=== PATIENT | male | born 1965 | race Two or more races ===

== ENCOUNTER 2020-08-13 15:49 | Emergency (ER) | payer OTHER ==
[~2020-08-13] VITALS: Ht 167.6 cm; Wt 87.5 kg
[2020-08-13] MEDS ORDERED: ASPI81TA31 PO (16:12)
[2020-08-13] MEDS ORDERED: ATOR40TA PO (16:12)
[2020-08-13] MEDS ORDERED: LOSA25TA27 PO (16:12)
[2020-08-13] MEDS ORDERED: METO-356 PO (16:12)
[2020-08-13] MEDS ORDERED: TICA60TA PO (16:12)
[2020-08-13 16:18] LABS: *BILIRUBIN,URIN NEGATIVE (NEGATIVE); *BLOOD, URINE 3+ (NEGATIVE); *CLARITY,URINE TURBID (CLEAR); *COLOR,URINE YELLOW (YELLOW); *KETONES,URINE NEGATIVE (NEGATIVE); *UROBILINOGEN,URINE 0.2 E.U./dl (NORMAL); LEUKOCYTE ESTERASE ,URINE 3+ (NEGATIVE); NITRITE, URINE NEGATIVE (NEGATIVE); PH,URINE 8.5 (5.0-8.0); UGLUCOSE NEGATIVE (NEGATIVE)
--- NOTE | 2020-08-13 16:59 | NUR ---
Patient discharged to home in stable condition. Written and verbal after care instructions given. Patient verbalizes understanding of instructions. Stressed follow up or return to ER for worsening s/s.
[2020-08-13] MEDS ORDERED: SULFAMETH/TRIMETH 800/160 MG TABLET PO ONE (17:00)
[2020-08-13] MEDS ORDERED: SULFAMETH/TRIMETH 800/160 MG TABLET ONE (17:00)
[2020-08-13 17:27] LABS: BACTERIA,URINE MANY /HPF (NONE SEEN); RBC,URINE 20-50 /HPF (0-3); SQUAMOUS EPITHELIAL CELL,UR FEW /HPF (NONE SEEN); WBC,URINE TNTC /HPF (0-3)
== END 2020-08-13 17:00 | disposition home or self-care (01) ==
LOC: ER 15:49
DX: N39.0 Urinary tract infection, site not specified (principal); R31.9 Hematuria, unspecified; I25.2 Old myocardial infarction; I25.10 Atherosclerotic heart disease of native coronary artery without angina pectoris; Z95.5 Presence of coronary angioplasty implant and graft; Z79.02 Long term (current) use of antithrombotics/antiplatelets; E78.5 Hyperlipidemia, unspecified; Z79.82 Long term (current) use of aspirin
CPT/HCPCS: 87077; 87086; A4663

== ENCOUNTER 2020-09-05 11:27 | Emergency (ER) | payer OTHER ==
[~2020-09-05] VITALS: Ht 167.6 cm; Wt 87.5 kg
[~2020-09-05 11:27] MED LIST: ASPI81TA31 PO; ATOR40TA PO; LOSA25TA27 PO; METO-356 PO; TICA60TA PO
--- NOTE | 2020-09-05 11:47 | NUR ---
PT IS IN ROOM #2A. DR FOX EVALUATED THE PT.
[2020-09-05 11:52] LABS: *BILIRUBIN,URIN NEGATIVE (NEGATIVE); *CLARITY,URINE SLIGHTLY CLOUDY (CLEAR); *COLOR,URINE YELLOW (YELLOW); *KETONES,URINE NEGATIVE (NEGATIVE); *UROBILINOGEN,URINE 0.2 E.U./dl (NORMAL); LEUKOCYTE ESTERASE ,URINE NEGATIVE (NEGATIVE); NITRITE, URINE NEGATIVE (NEGATIVE); PH,URINE 8.5 (5.0-8.0); UGLUCOSE NEGATIVE (NEGATIVE)
[2020-09-05 11:53] LABS: *BLOOD, URINE TRACE (NEGATIVE)
[2020-09-05] MEDS ORDERED: CEphaleXIN 500 MG CAPSULE PO ONE (12:30)
--- NOTE | 2020-09-05 12:33 | NUR ---
PT WAS D/C'd TO HOME. D/C INSTRUCTIONS GIVEN TO THE PT BY DR FOX.
[2020-09-05 12:34] VITALS: BP 145/88
[2020-09-05] MEDS ORDERED: CEphaleXIN 500 MG CAPSULE ONE (12:34)
[2020-09-05 14:37] LABS: RBC,URINE 0-3 /HPF (0-3)
[2020-09-05 14:38] LABS: BACTERIA,URINE NONE SEEN /HPF (NONE SEEN); SQUAMOUS EPITHELIAL CELL,UR FEW /HPF (NONE SEEN); URINE AMORPHOUS PHOSPHATES FEW /HPF; WBC,URINE 0-3 /HPF (0-3)
== END 2020-09-05 12:35 | disposition home or self-care (01) ==
LOC: ER 11:27
DX: N30.00 Acute cystitis without hematuria (principal); I25.2 Old myocardial infarction; Z95.5 Presence of coronary angioplasty implant and graft; E78.5 Hyperlipidemia, unspecified; I25.10 Atherosclerotic heart disease of native coronary artery without angina pectoris; Z79.82 Long term (current) use of aspirin; Z79.899 Other long term (current) drug therapy
CPT/HCPCS: 87077; 87086; A4663

== ENCOUNTER 2020-09-24 08:54 | Emergency (ER) | payer OTHER ==
[~2020-09-24] VITALS: Ht 167.6 cm; Wt 87.5 kg
--- NOTE | 2020-09-24 09:32 | NUR ---
PT IS IN ROOM #2A. DR ARROYO EVALUATED THE PT.
[2020-09-24 09:35] LABS: BASOPHILS # (AUTO) 0.1 K/uL (0.0-8.0); BASOPHILS % (AUTO) 0.4 % (0.0-2.0); EOSINOPHILS % (AUTO) 0.2 % (0.0-7.0); HEMATOCRIT 40.7 % (36.7-47.1); HEMOGLOBIN 14.4 g/dL (12.5-16.3); LYMPHOCYTES # (AUTO) 0.7 K/uL (20.0-40.0); MEAN CORPUSCULAR HGB CONC 35 g/dL (32.5-36.3); MEAN CORPUSCULAR VOLUME 90.2 fL (73.0-96.2); MONOCYTES # (AUTO) 1.1 K/uL (2.0-10.0); MONOCYTES % (AUTO) 8.3 % (0.0-11.0); NEUTROPHILS # (AUTO) 11.7 K/uL (1.8-8.9); NEUTROPHILS % (AUTO) 86.1 % (38.5-71.5); PLATELET COUNT (AUTO) 271 K/uL (152-348); RED BLOOD CELL COUNT(AUTO) 4.51 MIL/uL (4.06-5.63); WHITE BLOOD COUNT (AUTO) 13.5 K/uL (3.6-10.2)
[2020-09-24 09:41] LABS: *BILIRUBIN,URIN NEGATIVE (NEGATIVE); *BLOOD, URINE 3+ (NEGATIVE); *CLARITY,URINE TURBID (CLEAR); *COLOR,URINE RED (YELLOW); *KETONES,URINE NEGATIVE (NEGATIVE); *UROBILINOGEN,URINE 0.2 E.U./dl (NORMAL); LEUKOCYTE ESTERASE ,URINE 1+ (NEGATIVE); NITRITE, URINE NEGATIVE (NEGATIVE); PH,URINE 8.5 (5.0-8.0); UGLUCOSE NEGATIVE (NEGATIVE)
[2020-09-24 09:45] LABS: CREATININE 1.1 mg/dL (0.6-1.3); POTASSIUM 4.2 mmol/L (3.5-5.1)
[2020-09-24] MEDS ORDERED: SULFAMETH/TRIMETH 800/160 MG TABLET PO ONE (10:45)
[2020-09-24] MEDS ORDERED: SULFAMETH/TRIMETH 800/160 MG TABLET ONE (10:48)
--- NOTE | 2020-09-24 10:48 | NUR ---
PT WAS D/C'd TO HOME. D/C INSTRUCTIONS GIVEN TO THE PT BY DR ARROYO.
[2020-09-24 10:49] VITALS: BP 139/78
[2020-09-24 13:35] LABS: RBC,URINE 80-100 /HPF (0-3)
[2020-09-24 13:36] LABS: SQUAMOUS EPITHELIAL CELL,UR FEW /HPF (NONE SEEN)
[2020-09-24 13:37] LABS: BACTERIA,URINE FEW /HPF (NONE SEEN)
[2020-09-26 14:06] LABS: *GC NAA Negative (Negative); *TRIC.VAG. NAA Negative (Negative)
== END 2020-09-24 10:50 | disposition home or self-care (01) ==
LOC: ER 08:54
DX: N30.91 Cystitis, unspecified with hematuria (principal); I10 Essential (primary) hypertension; I25.2 Old myocardial infarction; I25.10 Atherosclerotic heart disease of native coronary artery without angina pectoris; Z95.5 Presence of coronary angioplasty implant and graft; Z79.82 Long term (current) use of aspirin; Z87.440 Personal history of urinary (tract) infections; E78.5 Hyperlipidemia, unspecified; Z79.899 Other long term (current) drug therapy; E87.1 Hypo-osmolality and hyponatremia; Z79.02 Long term (current) use of antithrombotics/antiplatelets
CPT/HCPCS: 36415; 85025; 85730; 87077; 87086; 87491; A4663

== ENCOUNTER 2020-10-22 11:44 | Inpatient (IN) | payer OTHER ==
[~2020-10-22] VITALS: Ht 167.6 cm; Wt 88.0 kg
--- NOTE | 2020-10-22 12:18 | NUR ---
Pt c/o dysuria since yesterday. Also c/o left sided chest wall pain, dull ache. Pt denies SOB, dizziness, n/v, no other complaints, no distress noted, but pt appears anxious. EKG done and given to .
[2020-10-22 12:32] LABS: *BILIRUBIN,URIN NEGATIVE (NEGATIVE); *BLOOD, URINE TRACE (NEGATIVE); *CLARITY,URINE CLEAR (CLEAR); *COLOR,URINE YELLOW (YELLOW); *KETONES,URINE NEGATIVE (NEGATIVE); *UROBILINOGEN,URINE 0.2 E.U./dl (NORMAL); LEUKOCYTE ESTERASE ,URINE 1+ (NEGATIVE); NITRITE, URINE NEGATIVE (NEGATIVE); PH,URINE 8.5 (5.0-8.0); UGLUCOSE NEGATIVE (NEGATIVE)
[2020-10-22 12:50] LABS: BASOPHILS % (AUTO) 0.4 % (0.0-2.0); EOSINOPHILS % (AUTO) 0.2 % (0.0-7.0); HEMATOCRIT 42.7 % (36.7-47.1); HEMOGLOBIN 14.4 g/dL (12.5-16.3); LYMPHOCYTES # (AUTO) 1.1 K/uL (20.0-40.0); LYMPHOCYTES % (AUTO) 8.7 % (20.5-51.5); MEAN CORPUSCULAR HEMOGLOBIN 30.5 uug (23.8-33.4); MEAN CORPUSCULAR HGB CONC 34 g/dL (32.5-36.3); MEAN CORPUSCULAR VOLUME 90.2 fL (73.0-96.2); MONOCYTES # (AUTO) 1.1 K/uL (2.0-10.0); MONOCYTES % (AUTO) 8.7 % (0.0-11.0); NEUTROPHILS # (AUTO) 10.1 K/uL (1.8-8.9); PLATELET COUNT (AUTO) 221 K/uL (152-348); RED BLOOD CELL COUNT(AUTO) 4.74 MIL/uL (4.06-5.63); WHITE BLOOD COUNT (AUTO) 12.3 K/uL (3.6-10.2)
[2020-10-22 12:58] LABS: CREATININE 0.8 mg/dL (0.6-1.3)
[2020-10-22 13:11] LABS: BILIRUBIN,DIRECT 0.3 mg/dL (0.0-0.2); BILIRUBIN,TOTAL 1.5 mg/dL (0.2-1.0); TOTAL PROTEIN, SERUM 7.7 g/dL (6.4-8.2)
[2020-10-22] MEDS ORDERED: HYDR-501 PO (14:00)
--- NOTE | 2020-10-22 14:58 | NUR ---
Called report to SHANNEN Cardoza.
[2020-10-22 15:43] VITALS: BP 145/93
[2020-10-22 16:45] LABS: BACTERIA,URINE FEW /HPF (NONE SEEN)
[2020-10-22 16:46] LABS: SQUAMOUS EPITHELIAL CELL,UR NONE SEEN /HPF (NONE SEEN)
--- NOTE | 2020-10-22 18:08 | NUR ---
PT alert and oriented x 3. PT is in no acute distress. No ectopy noted on tele monitor. SNR @ 90s. Noted bruising on left hand. NO edema noted. Instructed pt to notify nursing for any c/o cp. PT verbalized understanding and agreeable with plan of care. PT currently denies any pain. Awaiting admitting orders.
[2020-10-22] MEDS ORDERED: LORA10TA7 PO (18:18)
[2020-10-22] MEDS ORDERED: Z GUARD REMEDY PASTE 57 GM TUBE TOP PRN (18:30)
[2020-10-22] MEDS ORDERED: HYDROCODONE/APAP 5-325MG TABLET PO PRN (18:30)
[2020-10-22] MEDS ORDERED: MAGNESIUM HYDROXIDE 30 ML LIQUID UDC PO PRN (18:30)
[2020-10-22] MEDS ORDERED: ONDANSETRON 4 MG/2 ML VIAL IV PRN (18:30)
[2020-10-22] MEDS ORDERED: ENOXAPARIN SODIUM 40 MG/0.4 ML DISP.SYRIN SQ SCH (18:30)
[2020-10-22] MEDS ORDERED: ACETAMINOPHEN 325 MG TABLET PO PRN (18:30)
[2020-10-22] MEDS ORDERED: LORATADINE 10 MG TABLET PO PRN (18:45)
[2020-10-22] MEDS ORDERED: Medication Not On Formulary EA (Ticagrelor (Brilinta) 60 MG) PO SCH (18:45)
[2020-10-22] MEDS ORDERED: hydrOXYzine HCL 25 MG TABLET PO PRN (18:45)
--- NOTE | 2020-10-22 19:30 | NUR ---
RECEIVED PT AWAKE, ALERT AND ORIENTEDX4. PT IN NO ACUTE DISTRESS. IV INTACT. SAFETY AND COMFORT PROVIDED. WILL CONTINUE TO MONITOR.
[2020-10-22] MEDS: CEphaleXIN 500 MG CAPSULE PO SCH (19:48)
[2020-10-22] MEDS ORDERED: TICAGRELOR 90 MG TABLET PO ONE (20:00)
--- NOTE | 2020-10-22 20:30 | NUR ---
LOVENOX NON-ADMINISTERED BECAUSE PT REFUSED IT AND STATED HE DOESN'T TAKE THAT MEDICATION. EDUCATE PT REGARDING LOVENOX MEDICATION.
[2020-10-22 20:51] VITALS: BP 116/82
[2020-10-22] MEDS ORDERED: ATORVASTATIN 40 MG TABLET PO SCH (21:00)
--- NOTE | 2020-10-22 23:30 | NUR ---
ATARAX 25 MG PRN GIVEN PER PT REQUEST AT 2227H . HE STATED HE NEEDS IT AND IT MAKES HIS CALM AND SLEEP.AFTER AN HOUR PT STATING HE IS SLEEPY AND FELT BETTER AND LESS ANXIOUS. WILL CONTINUE TO MONITOR.
[2020-10-23 05:20] VITALS: BP 130/76
--- NOTE | 2020-10-23 06:02 | NUR ---
PT SLEPT INTERMITTENTLY. PT IN NO ACUTE DISTRESS. IV INTACT.PT ON SINUS RHYTHM. PRESCRIBED MEDICATION GIVEN AND PT TOLERATED IT WELL. SAFETY AND COMFORT PROVIDED. WILL CONTINUE TO MONITOR.
[2020-10-23] MEDS: CEphaleXIN 500 MG CAPSULE PO SCH ×2 (06:24→14:07)
[2020-10-23 06:56] LABS: CREATININE 0.9 mg/dL (0.6-1.3); PHOSPHOROUS 3.7 mg/dL (2.5-4.9); POTASSIUM 3.7 mmol/L (3.5-5.1)
[2020-10-23 07:10] LABS: BASOPHILS % (AUTO) 0.4 % (0.0-2.0); EOSINOPHILS # (AUTO) 0.1 K/uL (0.0-0.7); HEMATOCRIT 39.3 % (36.7-47.1); HEMOGLOBIN 13.8 g/dL (12.5-16.3); LYMPHOCYTES # (AUTO) 1.6 K/uL (20.0-40.0); LYMPHOCYTES % (AUTO) 16.6 % (20.5-51.5); MEAN CORPUSCULAR HEMOGLOBIN 31.3 uug (23.8-33.4); MEAN CORPUSCULAR HGB CONC 35 g/dL (32.5-36.3); MEAN CORPUSCULAR VOLUME 89.4 fL (73.0-96.2); MONOCYTES # (AUTO) 1.2 K/uL (2.0-10.0); MONOCYTES % (AUTO) 11.8 % (0.0-11.0); NEUTROPHILS # (AUTO) 6.9 K/uL (1.8-8.9); NEUTROPHILS % (AUTO) 70.2 % (38.5-71.5); PLATELET COUNT (AUTO) 207 K/uL (152-348); RED BLOOD CELL COUNT(AUTO) 4.39 MIL/uL (4.06-5.63); WHITE BLOOD COUNT (AUTO) 9.9 K/uL (3.6-10.2)
--- NOTE | 2020-10-23 08:00 | NUR ---
Pt is in no acute distress. Instructed pt to call nursing for any c/o cp. Pt verbalized understanding. Tele SNR no ectopy noted. Call light is within reach.
[2020-10-23] MEDS ORDERED: ASPIRIN 81 MG TAB.CHEW PO SCH (09:00)
[2020-10-23] MEDS ORDERED: LOSARTAN POTASSIUM 25 MG TABLET PO SCH (09:00)
[2020-10-23] MEDS ORDERED: METOPROLOL SUCCINATE XL 25 MG TAB.SR.24H PO SCH (09:00)
[2020-10-23 11:30] VITALS: BP 127/81
[2020-10-23] MEDS ORDERED: TICAGRELOR 90 MG TABLET PO ONE (11:30)
[2020-10-23] MEDS ORDERED: CEPH500C2 PO (12:48)
[2020-10-23 15:33] VITALS: BP 100/65
--- NOTE | 2020-10-23 16:20 | NUR ---
Pt denies any c/o any cp throughout shift. Discharge instructions given to patient. 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 Pt states that he has appt with his primary doctor this coming . Pt verbalized understanding. IV d/c. Pt to f/u with vaccination with his primary doctor. No sob upon d/c.
== END 2020-10-23 16:30 | disposition home or self-care (01) | DRG 463 ==
LOC: ER 11:49 → TELE3 14:54
PROVIDERS: ADMIT Nurse Practitioner Acute Care; ATTEND Nurse Practitioner Acute Care
DX: N39.0 Urinary tract infection, site not specified (principal); M94.0 Chondrocostal junction syndrome [Tietze]; E66.01 Morbid (severe) obesity due to excess calories; E78.5 Hyperlipidemia, unspecified; E87.1 Hypo-osmolality and hyponatremia; I10 Essential (primary) hypertension; Z79.82 Long term (current) use of aspirin; Z87.440 Personal history of urinary (tract) infections; I25.10 Atherosclerotic heart disease of native coronary artery without angina pectoris; D68.69 Other thrombophilia; I25.2 Old myocardial infarction; Z95.5 Presence of coronary angioplasty implant and graft; Z68.31 Body mass index [BMI] 31.0-31.9, adult
CPT/HCPCS: 36415; 70030-TC; 71045; 83735; 84100; 85025; 87086; 93005; 93307; A4663; G0378; J1650